=== PATIENT | female | born 1950 | race Caucasian/White ===

== ENCOUNTER 2018-08-27 18:32 | Observation (INO) | payer OTHER ==
[~2018-08-27] VITALS: Ht 160 cm; Wt 81.3 kg
[2018-08-27] MEDS ORDERED: ASPIRIN 81 MG TAB PO STA (18:41)
[2018-08-27] MEDS ORDERED: NITROGLYCERIN 2% 1 GM OINT PKT TD STA (18:41)
[2018-08-27] MEDS ORDERED: NITROGLYCERIN (SL) 0.4 MG TAB SL PRN (19:00)
[2018-08-27] MEDS ORDERED: ONDANSETRON 4 MG TAB PO PRN (20:00)
[2018-08-27] MEDS ORDERED: NACL 0.9% 3 ML SYG IV SCH (20:00)
[2018-08-27] MEDS ORDERED: ONDANSETRON 4 MG INJ IV PRN (20:00)
[2018-08-27] MEDS ORDERED: BISACODYL (EC) 5 MG TAB PO PRN (20:00)
[2018-08-27] MEDS ORDERED: DOCUSATE SODIUM 100 MG CAP PO PRN (20:00)
[2018-08-27] MEDS ORDERED: ACETAMINOPHEN 325 MG TAB PO PRN ×2 (20:00)
--- NOTE | 2018-08-27 20:01 | ERD ---
ER Documentation Chief Complaint Chief Complaint CP/BP used nitro x3 today, "not feeling well" for several days HPI Patient is a 68-year-old female with hypertension, coronary disease, and colon cancer presents with chest pain. She has left-sided midsternal chest pain. She says that she is not feeling well. She took nitro 4 times today. She said the chest pain is pressure-like and comes and goes. She had headache and blurred vision as well. ROS All systems reviewed and are negative except as per history of present illness. PMhx/Soc History of Surgery: Yes (cardiac bypass x2, thyroidectomy, appendectomy, facial sx) Anesthesia Reaction: No Hx Neurological Disorder: No Hx Respiratory Disorders: No Hx Cardiac Disorders: Yes (CHF, [place]) Hx Psychiatric Problems: Yes (DEPRESSION) Hx Alcohol Use: Yes Hx Substance Use: No Hx Tobacco Use: Yes Smoking Status: Current some day smoker FmHx Family History: coronary disease Physical Exam Vitals Vital Signs Date Temp Pulse Resp B/P (MAP) Pulse Ox O2 O2 Flow FiO2 Time Delivery Rate 08/27/18 78 17 107/53 99 Nasal 2.0 19:08 (71) Cannula 08/27/18 97.2 80 16 121/60 96 18:36 (80) Physical Exam Const: No acute distress Head: Atraumatic Eyes: Normal Conjunctiva ENT: Normal External Ears, Nose and Mouth. Neck: Full range of motion. No meningismus. Resp: Clear to auscultation bilaterally Cardio: Regular rate and rhythm, no murmurs Abd: Soft, non tender, non distended. Normal bowel sounds Skin: No petechiae or rashes Back: No midline or flank tenderness Ext: No cyanosis, or edema Neur: Awake and alert Psych: Anxious Result Diagram: 08/27/18 1856 08/27/18 1856 Results 24 hrs Laboratory Tests Test 08/27/18 18:56 White Blood Count 10.2 10^3/ul Red Blood Count 4.17 10^6/ul Hemoglobin 13.5 g/dl Hematocrit 38.7 % Mean Corpuscular Volume 92.8 fl Mean Corpuscular Hemoglobin 32.4 pg Mean Corpuscular Hemoglobin Concent 34.9 g/dl Red Cell Distribution Width 12.2 % Platelet Count 262 10^3/UL Mean Platelet Volume 10.1 fl Immature Granulocytes % 0.700 % Neutrophils % 68.4 % Lymphocytes % 22.2 % Monocytes % 4.9 % Eosinophils % 2.9 % Basophils % 0.9 % Nucleated Red Blood Cells % 0.0 /100WBC Immature Granulocytes # 0.070 10^3/ul Neutrophils # 7.0 10^3/ul Lymphocytes # 2.3 10^3/ul Monocytes # 0.5 10^3/ul Eosinophils # 0.3 10^3/ul Basophils # 0.1 10^3/ul Nucleated Red Blood Cells # 0.0 10^3/ul Sodium Level 138 mmol/L Potassium Level 3.7 mmol/L Chloride Level 103 mmol/L Carbon Dioxide Level 23 mmol/L Anion Gap 12 Blood Urea Nitrogen 18 mg/dl Creatinine 1.25 mg/dl Est Glomerular Filtrat Rate mL/min 42 mL/min Glucose Level 142 mg/dl Calcium Level 9.8 mg/dl Troponin I < 0.012 ng/ml Current Medications Medications Dose Sig/Patti Start Time Status Last (Trade) Ordered Route PRN Stop Time Admin Dose Reason Admin Aspirin 162 mg ONCE STAT 08/27/18 DC 08/27/18 (Aspirin) PO 18:41 19:00 08/27/18 18:42 1 inch ONCE STAT 08/27/18 DC Nitroglycerin TD 18:41 08/27/18 18:42 (Nitroglyceri n 2% Oint) 1 tab Q5M UP TO 3 08/27/18 Nitroglycerin DOSES PRN 19:00 SL .CHEST (Nitroglyceri PAIN n (Sl Tab) 0.4 Mg) Ondansetron 4 mg ER BRIDGE 08/27/18 HCl (Zofran PRN IV 20:00 Inj) NAUSEA/VOMITI 08/28/18 19:59 NG 650 mg ER BRIDGE 08/27/18 Acetaminophen PRN PO 20:00 (Tylenol .MILD PAIN 08/28/18 19:59 Tab) 1-3 OR TEMP Procedures/MDM EKG #1 read by me: Rate/Rhythm: Regular rate and rhythm at a normal rate Intervals: Normal Impression: No evidence of ischemia or arrhythmia EKG #2 read by me: Rate/Rhythm: Regular rate and rhythm at a normal rate Intervals: Normal Impression: No evidence of ischemia or arrhythmia Chest x-ray read by radiology. Smoking Cessation Therapy: Pt. was lectured for greater than 3 minutes on the health risks of continued smoking and the benefits of cessation. Patient is a 68-year-old female with multiple cardiac risk factors who presents with pressure-like chest pain. I am concerned for possible acute coronary syndrome. I doubt pneumonia, pneumothorax, pulmonary embolism, or aortic dissection. The patient was given aspirin and nitroglycerin. She will be admitted to the care of Dr. Devi as I am told by the financial team she has preferred [employer] insurance. Patient will be admitted to a telemetry observation bed. Departure Diagnosis: Primary Impression: Chest pain Chest pain type: unspecified Qualified Codes: R07.9 - Chest pain, unspecified Condition: DAX Leigh MD Aug 27, 2018 20:01
[2018-08-27 20:56] VITALS: PULSE 69
[2018-08-27 21:00] VITALS: BP 130/65; PULSE 70; RESP 19
[2018-08-27] MEDS ORDERED: ERGO500013 PO (21:09)
[2018-08-27] MEDS ORDERED: HYDR-3980 PO (21:09)
[2018-08-27] MEDS ORDERED: LEVO125T7 PO (21:09)
[2018-08-27] MEDS: morphine 2 MG INJ IV PRN (21:20)
[2018-08-27] MEDS ORDERED: ARIP2TAB9 PO (21:25)
[2018-08-27] MEDS ORDERED: EZET10TA32 PO (21:25)
[2018-08-27] MEDS ORDERED: ATEN50TA PO (21:25)
[2018-08-27] MEDS ORDERED: POTA8TAB46 PO (21:25)
[2018-08-27] MEDS ORDERED: LISI10TA2 PO (21:25)
[2018-08-27] MEDS ORDERED: NITR12SP (21:25)
[2018-08-27] MEDS ORDERED: NITR0.4T32 SL (21:25)
[2018-08-27] MEDS ORDERED: SERT-165 PO (21:25)
[2018-08-27] MEDS ORDERED: RANO500T2 PO (21:25)
[2018-08-27] MEDS ORDERED: FURO40TA4 PO (21:25)
[2018-08-27] MEDS ORDERED: CLOP75TA28 PO (21:25)
[2018-08-27] MEDS ORDERED: LAMO200T2 PO (21:25)
[2018-08-27] MEDS ORDERED: ALPR2TAB3 PO (21:25)
[2018-08-27] MEDS ORDERED: RANI150T5 PO (21:25)
[2018-08-27 22:16] VITALS: Ht 160 cm; Wt 81.3 kg
--- NOTE | 2018-08-27 22:22 | HP ---
Date/Time of Note Date/Time of Note DATE: 08/27/18 TIME: 22:22 Assessment/Plan VTE Prophylaxis SCD applied (from Nsg): Yes Pharmacological prophylaxis: NA/contraindicated Pharm contraindication: low risk/ambulating Lines/Catheters IV Catheter Type (from Nrsg): Saline Lock Assessment/Plan Hospital Course This is a 68-year-old female being admitted to the telemetry floor for: #1 chest pain: Rule out ACS versus anginal equivalent: Patient does report that she has been taking multiple nitro tabs recently. Initial cardiac enzyme was negative. Will trend cardiac enzymes. Will check an echocardiogram. EKG does not appear to be ischemic. Will consult cardiology . We will c heck hemoglobin A 1C, lipid panel, TSH #2 history of thyroid cancer: We will check TSH, resume levothyroxine #3 coronary disease: Patient is status post CABG, has a history of multiple MIs. Continue Ranexa, Plavix, ezetembie, atenolol, lisinopril #4 hyperlipidemia: Check lipid panel, cont ezetembie #5 questionable history of colon cancer: Patient apparently had a positive stool occult blood. Check stool occult blood. She does have a GI as an outpatient. She is requesting a whole-body MRI. I do feel that this could be further managed as an outpatient, will defer to the day team in terms of getting further imaging/gi consult. #6 mood disorder: Patient is a very anxious individual, continue home medication #7 DVT GI prophylaxis: SCDs, no GI prophylaxis indicated Further treatment strategy will be implemented as per the clinical course. Result Diagram: 08/27/18185508/27/186 Results 24hrs Laboratory Tests Test 08/27/18 18:56 White Blood Count 10.2 Red Blood Count 4.17 L Hemoglobin 13.5 Hematocrit 38.7 Mean Corpuscular Volume 92.8 Mean Corpuscular Hemoglobin 32.4 Mean Corpuscular Hemoglobin Concent 34.9 Red Cell Distribution Width 12.2 Platelet Count 262 Mean Platelet Volume 10.1 Immature Granulocytes % 0.700 H Neutrophils % 68.4 Lymphocytes % 22.2 Monocytes % 4.9 Eosinophils % 2.9 Basophils % 0.9 Nucleated Red Blood Cells % 0.0 Immature Granulocytes # 0.070 H Neutrophils # 7.0 Lymphocytes # 2.3 Monocytes # 0.5 Eosinophils # 0.3 Basophils # 0.1 Nucleated Red Blood Cells # 0.0 Sodium Level 138 Potassium Level 3.7 Chloride Level 103 Carbon Dioxide Level 23 Anion Gap 12 Blood Urea Nitrogen 18 Creatinine 1.25 H Est Glomerular Filtrat Rate mL/min 42 L Glucose Level 142 Calcium Level 9.8 Troponin I < 0.012 HPI/ROS Admit Date/Time Admit Date/Time Aug 27, 2018 at 19:56 Hx of Present Illness Chief complaint: Chest pain This is a 68-year-old female with a past medical history of hypertension thyroid cancer, coronary artery disease status post CABG, and recent diagnosis of possible colon cancer who presented to the emergency department complaining of chest pain. Patient reported that she has been expressing left-sided midsternal chest pain. She states that has been on and off. She took 4 nitros prior to coming into the emergency department. She reports it is a pressure-like sensation. She also has reported headaches and blurry vision. She does state that she was diagnosed with possible colon cancer recently through blood test that was done via her [facility] care doctor. She is unable to have a colonoscopy performed given her underlying cardiac history according to her. During my examination with her she does repeatedly request a full body MRI scan. 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 Allergies: NKDA Medications: See SCOTTIE HARRIS Const: As per HPI Eyes : No pain discharge or redness or change in visual acuity ENT: No pain, sore throat, congestion, congestion, dysphagia or discharge Respiratory: No shortness of breath, cough, sputum, wheezing, or pleuritic pain Cardiovascular: As per HPI GI : As per HPI Musculoskeletal: No joint pain, back pain, neck pain, restricted range of motion in neck or joints Skin: No rash, bruising or hives Neuro: No headache, dizziness, syncope, seizure, focal weakness Endocrine: No polyuria, polydipsia, temperature intolerance Psych: No hallucination, depression, anxiety or suicidal ideation PMH/Family/Social Past Medical History Thyroid cancer, coronary artery disease, PA x3, chronic kidney disease stage III, hyperlipidemia, colon cancer, mood disorder Medications Current Medications Ondansetron HCl (Zofran Inj) 4 mg ER BRIDGE PRN IV NAUSEA/VOMITING; Start 08/27/18 at 20:00; Stop 08/28/18 at 19:59 IV Flush (NS 3 ml) 3 ml PER PROTOCOL IV ; Start 08/27/18 at 20:00 Ondansetron HCl (Zofran Tab) 4 mg Q6H PRN PO NAUSEA/VOMITING; Start 08/27/18 at 20:00 Aspirin (Aspirin) 81 mg DAILY PO ; Start 08/28/18 at 09:00 Nitroglycerin (Nitroglycerin (Sl Tab) 0.4 Mg) 1 tab Q5M PRN SL .CHEST PAIN; Start 08/27/18 at 20:00 Acetaminophen (Tylenol Tab) 650 mg Q6H PRN PO .PAIN 1-3 OR TEMP; Start 08/27/18 at 20:00 Morphine Sulfate (morphine) 2 mg Q4H PRN IV .PAIN 7-10 Last administered on 08/27/18at 21:20; Admin Dose 2 MG; Start 08/27/18 at 20:00 Docusate Sodium (Colace) 100 mg Q12H PRN PO .CONSTIPATION; Start 08/27/18 at 20:00 Bisacodyl (Dulcolax) 5 mg DAILY PRN PO .CONSTIPATION; Start 08/27/18 at 20:00 Heparin Sodium (Porcine) (Heparin (5000 Units/1ml)) 5,000 unit Q8 SC ; Start 08/27/18 at 22:00 Coded Allergies: No Known Allergy (Unverified , 08/27/18) Past Surgical History CABG, thyroidectomy, appendectomy, tonsillectomy Family History Significant Family History: cancer (Multiple relatives with cancer) Social History Alcohol Use: occasionally Smoking Status: Current some day smoker Exam/Review of Systems Vital Signs Vitals Vital Signs Date Temp Pulse Resp B/P (MAP) Pulse Ox O2 O2 Flow FiO2 Time Delivery Rate 08/27/18 97.9 70 19 130/65 99 Nasal 21:00 (86) Cannula 08/27/18 2.0 20:21 Exam Exam General: Patient is currently lying in bed she does not appear to be in no acute distress, she does appear to be very anxious HEENT: Atraumatic, normocephalic. The pupils are equal, round and reactive. Extraocular motor are intact Neck: Supple with full range of motion. No rigidity or meningismus Chest: Nontender Lungs: Clear to auscultation bilaterally no crackles rales or wheezing Heart: Normal S1-S2, Regular rhythm and rate. No murmur, S3, or S4 Abdomen: Soft , nontender, nondistended , bowel sounds are present. No guarding no rebound tenderness , No masses or organomegaly. No costovertebral temporal angle mass Extremities: Normal to inspection, no edema no cyanosis Neurologic: Normal mental status, speech normal, cranial nerves II through XII are intact, motor and sensory are intact, no focal weakness Psych: Patient is very anxious she, does go on tangents and repeats herself Additional Comments EKG Rate/Rhythm: Regular rate and rhythm at a normal rate Intervals: Normal Impression: No evidence of ischemia or arrhythmia PROCEDURE: XR Chest. CLINICAL INDICATION: Pain TECHNIQUE: Frontal chest x-ray was obtained. COMPARISON: None. FINDINGS: The heart is not enlarged. The patient is post CABG. Mediastinum is not widened. No hilar masses seen. Lungs are clear of any infiltrates. There is no effusion or pneumothorax. 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 IMPRESSION: No evidence for active cardiopulmonary disease. .Steve Will MD, MD Date Time Electronically viewed and signed by .Steve Will MD, MD on 08/27/2018 19:53 .A/ CC: DAX EMERY MD [id number] GIGI ELIZABETH Aug 27, 2018 22:22
[2018-08-27] MEDS ORDERED: NON-FORMULARY/PATIENT OWN MED (Alprazolam* (Alprazolam* ER) 2 MG) PO SCH (22:30)
[2018-08-27] MEDS ORDERED: RANOLAZINE (SR) 500 MG TAB PO SCH (22:30)
[2018-08-27] MEDS: NITROGLYCERIN (SL) 0.4 MG TAB SL PRN ×2 (22:30→22:42)
[2018-08-27] MEDS: FUROSEMIDE 40 MG TAB PO SCH (22:50)
[2018-08-27] MEDS: SERTRALINE 100 MG TAB PO SCH (22:50)
[2018-08-27 23:42] VITALS: BP 107/62; PULSE 69; RESP 20
[2018-08-28] VITALS (15 sets, daily range): BP systolic 89–108; BP diastolic 49–67; PULSE 38–74; RESP 20–22
[2018-08-28] MEDS: HEPARIN 5,000 UNIT/1 ML VIAL SC SCH ×4 (00:20→21:13)
[2018-08-28] MEDS: morphine 2 MG INJ IV PRN ×2 (04:51→17:31)
[2018-08-28] MEDS: NITROGLYCERIN (SL) 0.4 MG TAB SL PRN (05:25)
[2018-08-28] MEDS: FUROSEMIDE 40 MG TAB PO SCH ×2 (05:27→17:27)
[2018-08-28] MEDS: ALPRAZOLAM 1 MG TAB PO SCH ×2 (06:27→20:36)
[2018-08-28] MEDS: RANOLAZINE (SR) 500 MG TAB PO SCH ×2 (08:39→20:36)
[2018-08-28] MEDS: ARIPIPRAZOLE 2 MG TAB PO SCH (08:39)
[2018-08-28] MEDS: POTASSIUM CHLORIDE (SR) 8 MEQ CAP PO SCH ×2 (08:39→20:36)
[2018-08-28] MEDS: EZETIMIBE 10 MG TAB PO SCH (08:40)
[2018-08-28] MEDS: LEVOTHYROXINE 125 MCG TAB PO SCH (08:40)
[2018-08-28] MEDS: CLOPIDOGREL 75 MG TAB PO SCH (08:40)
[2018-08-28] MEDS: LISINOPRIL 10 MG TAB PO SCH (08:41)
[2018-08-28] MEDS: ATENOLOL 50 MG TAB PO SCH (08:41)
[2018-08-28] MEDS: SERTRALINE 100 MG TAB PO SCH ×2 (08:41→20:36)
[2018-08-28] MEDS: ASPIRIN 81 MG TAB PO SCH (08:42)
--- NOTE | 2018-08-28 08:51 | CONS ---
Assessment/Plan Assessment/Plan Hospital Course (Demo Recall) Chest pain/chronic angina: Trops negative. Her symptoms seem to be chronic and though she is unable to properly explain why she decided to come in now, there is presumably worsening of her symptoms. She is hesitant about cardiac cath which I agree but if she has worsening of her RCA/Cx disease, it may explain her symptoms. She could potentially be a candidate for repeat CABG or just PCI. Will start with cardiac CTA to eval which she is agreeable CAD s/p CABG: MAY-LAD and SVG-diag 1996 both of which are known occluded. 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 as well as intermediate Cx and RCA disease as of cath 2012 Ischemic cardiomyopathy: EF 50-55% with LAD territory WMA as expected Chronic systolic CHF: euvolemic HTN HL COPD tobacco use -cardiac CTA today -increase to Ranexa 1000mg BID -refuses to retry imdur -atenolol 50mg -lisinopril 10mg -lasix 40mg PO BID -statin allergy, on Repatha as outpt -zetia Consultation Date/Type/Reason Admit Date/Time Aug 27, 2018 at 19:56 Date of Consultation: Aug 28, 2018 Type of Consult Cardiology Reason for Consultation Chest pain Requesting Provider: GIGI ELIZABETH Date/Time of Note DATE: 08/28/18 TIME: 08:51 Hx of Present Illness 68 yo F known to my colleague from clinic with a h/o CAD s/p CABG (MAY-LAD and SVG-diag 1996 both of which are known occluded. 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 She was given Xanax this am and is somnolent and falls asleep during the interview but is able to tell me that she has been taking her NTG spray 4-5 times daily for angina. This has not really changed in frequency and she is not able to clearly explain to me why she decided to come in now if her symptoms are chronic. She also has exertional dyspnea. No orthopnea, edema. She has been offered imdur in the past but refused and does not think it works. She has been on Ranexa. She notes that she has to get a colonoscopy for colon cancer ?screening and was told by her GI that she cannot because of her CAD history. She does not want a cardiac cath as she states that her LAD has had failed intervention attempts in the past but was explained that she may have progression of her Cx and RCA disease since 2011. She is agreeable to further testing. per hPI Past Medical History per hPI Home Meds Reported Medications Nitroglycerin* (Nitroglycerin* SL) 0.4 Mg Tab.subl, 0.4 MG SL Q5MIN PRN for CHEST PAIN, BOTTLE 08/27/18 Nitroglycerin* (Nitroglycerin* [place]) 400 Mcg/[place], 1 SPRAY SPRAY 1 SPRAY (0.4 MG) UNDER THE TONGUE DAILY 5-10 MINUTES BEFORE STRENOUS ACTIVITY 08/27/18 Aripiprazole (Aripiprazole) 2 Mg Tablet, 2 MG PO DAILY TAKE 1 TABLET BY MOUTH DAILY 08/27/18 Potassium Chloride (K-Tab ER) 8 Meq Tablet.er, 8 MEQ PO BID TAKE 1 TABLET BY MOUTH TWICE A DAY 08/27/18 Clopidogrel Bisulfate (Clopidogrel) 75 Mg Tablet, 75 MG PO DAILY for 90 Days, #90 TAKE 1 TABLET BY MOUTH EVERY DAY; 08/27/18 Atenolol* (Atenolol*) 50 Mg Tablet, 50 MG PO DAILY TAKE ONE TABLET BY MOUTH DAILY 08/27/18 Furosemide* (Furosemide*) 40 Mg Tablet, 40 MG PO BID TAKE 1 TABLET BY MOUTH TWICE A DAY 08/27/18 Ranolazine* (Ranexa*) 500 Mg Tab.sr.12h, 500 MG PO Q12 TAKE 1 TABLET BY MOUTH TWICE A DAY 08/27/18 Sertraline Hcl* (Sertraline Hcl*) 100 Mg Tablet, 100 MG PO BID for 30 Days, #60 08/27/18 Ranitidine Hcl* (Ranitidine Hcl*) 150 Mg Tablet, 150 MG PO DAILY for 90 Days 08/27/18 Lisinopril* (Lisinopril*) 10 Mg Tablet, 10 MG PO DAILY for 90 Days 08/27/18 Lamotrigine* (Lamotrigine*) 200 Mg Tablet, 100 MG PO QPM for 90 Days TAKE ONE HALF TAB BY MOUTH DAILY IN THE EVENING 08/27/18 Ezetimibe (Ezetimibe) 10 Mg Tablet, 10 MG PO DAILY for 90 Days, #90 08/27/18 Alprazolam* (Alprazolam* ER) 2 Mg Tab.sr.24h, 2 MG PO BID 08/27/18 Hydrocodone/Acetaminophen ([place] 10-325 Tablet) 1 Each Tablet, 1 EACH PO Q6H PRN for PAIN LEVEL 6-10, TAB 08/27/18 Levothyroxine Sodium* (Levothyroxine Sodium*) 125 Mcg Tablet, 125 MCG PO QAM for 90 Days, #90 08/27/18 Ergocalciferol (Vitamin D2) (VITAMIN D2) 50,000 Unit Capsule, 1 CAP PO Q7D for QMONDAY 08/27/18 Medications Current Medications Ondansetron HCl (Zofran Inj) 4 mg ER BRIDGE PRN IV NAUSEA/VOMITING; Start 08/10 12/28 at 20:00; Stop 08/28/18 at 19:59 IV Flush (NS 3 ml) 3 ml PER PROTOCOL IV ; Start 08/27/18 at 20:00 Ondansetron HCl (Zofran Tab) 4 mg Q6H PRN PO NAUSEA/VOMITING; Start 08/27/18 at 20:00 Aspirin (Aspirin) 81 mg DAILY PO ; Start 08/28/18 at 09:00 Nitroglycerin (Nitroglycerin (Sl Tab) 0.4 Mg) 1 tab Q5M PRN SL .CHEST PAIN Last administered on 08/28/18at 05:25; Admin Dose 1 TAB; Start 08/27/18 at 20:00 Acetaminophen (Tylenol Tab) 650 mg Q6H PRN PO .PAIN 1-3 OR TEMP; Start 08/27/18 at 20:00 Morphine Sulfate (morphine) 2 mg Q4H PRN IV .PAIN 7-10 Last administered on 08/28/18at 04:51; Admin Dose 2 MG; Start 08/27/18 at 20:00 Docusate Sodium (Colace) 100 mg Q12H PRN PO .CONSTIPATION; Start 08/27/18 at 20:00 Bisacodyl (Dulcolax) 5 mg DAILY PRN PO .CONSTIPATION; Start 08/27/18 at 20:00 Heparin Sodium (Porcine) (Heparin (5000 Units/1ml)) 5,000 unit Q8 SC Last administered on 08/28/18at 05:42; Admin Dose 5,000 UNIT; Start 08/27/18 at 22:00 Aripiprazole (Abilify) 2 mg DAILY PO ; Start 08/28/18 at 09:00 Atenolol (Tenormin) 50 mg DAILY PO ; Start 08/28/18 at 09:00 Clopidogrel Bisulfate (plaVIX) 75 mg DAILY PO ; Start 08/28/18 at 09:00 EZETIMIBE (Zetia) 10 mg DAILY PO ; Start 08/28/18 at 09:00 Furosemide (Lasix) 40 mg BID DIURETICS PO Last administered on 08/28/18at 05:27; Admin Dose 40 MG; Start 08/27/18 at 22:30 Lamotrigine (Lamictal) 100 mg QPM PO ; Start 08/28/18 at 21:00 Levothyroxine Sodium (Synthroid) 125 mcg QAM PO ; Start 08/28/18 at 09:00 Lisinopril (Zestril) 10 mg DAILY PO ; Start 08/28/18 at 09:00 Potassium Chloride (Micro-K) 8 meq BID PO ; Start 08/28/18 at 09:00 Ranitidine HCl (Zantac) 150 mg DAILY PO ; Start 08/28/18 at 09:00 Ranolazine (Ranexa) 500 mg Q12 PO Last administered on 08/27/18at 22:50; Admin Dose 500 MG; Start 08/27/18 at 22:30 Sertraline HCl (Zoloft) 100 mg BID PO Last administered on 08/27/18at 22:50; Admin Dose 100 MG; Start 08/27/18 at 22:30 Alprazolam (Xanax) 2 mg BID PO Last administered on 08/28/18at 06:27; Admin Dose 2 MG; Start 08/28/18 at 06:31 Allergies: Coded Allergies: No Known Allergy (Unverified , 08/27/18) Social History Smoking Status: Current some day smoker Exam/Review of Systems Vital Signs Vitals Vital Signs Date Temp Pulse Resp B/P (MAP) Pulse Ox O2 O2 Flow FiO2 Time Delivery Rate 08/28/18 97.8 58 22 89/51 (64) 96 Nasal 2.0 07:53 Cannula Intake and Output 08/27/18 08/27/18 08/28/18 1515:00 23:00 07:00 IntakeIntake Total 800 ml BalanceBalance 800 ml Exam Constitutional: oriented; No alert (somnolent but arousable ) Psych: no complaints, nl mood/affect Head: normocephalic, atraumatic Neck: No jvd Respiratory: clear to auscultation, diminished breath sounds Cardiovascular: regular rate and rhythm; No edema, No systolic murmur Gastrointestinal: soft, non-tender; No distended Neurological: nl mental status, nl speech Labs Result Diagram: 08/28/1815 08/28/1815 Results 24hrs Laboratory Tests Test 08/27/18 18:56 08/28/18 00:53 08/28/18 06:14 08/28/18 06:15 White Blood Count 10.2 7.7 # Red Blood Count 4.17 L 3.69 L Hemoglobin 13.5 11.9 L Hematocrit 38.7 35.2 L Mean Corpuscular 92.8 95.4 Volume Mean Corpuscular 32.4 32.2 Hemoglobin Mean Corpuscular 34.9 33.8 Hemoglobin Concent Red Cell 12.2 12.4 Distribution Width Platelet Count 262 213 Mean Platelet Volume 10.1 10.6 H Immature 0.700 H 0.700 H Granulocytes % Neutrophils % 68.4 63.8 Lymphocytes % 22.2 23.0 Monocytes % 4.9 6.8 Eosinophils % 2.9 4.8 Basophils % 0.9 0.9 Nucleated Red Blood 0.0 0.0 Cells % Immature 0.070 H 0.050 H Granulocytes # Neutrophils # 7.0 4.9 Lymphocytes # 2.3 1.8 Monocytes # 0.5 0.5 Eosinophils # 0.3 0.4 Basophils # 0.1 0.1 Nucleated Red Blood 0.0 0.0 Cells # Sodium Level 138 140 Potassium Level 3.7 3.6 Chloride Level 103 101 Carbon Dioxide Level 23 23 Anion Gap 12 16 H Blood Urea Nitrogen 18 19 Creatinine 1.25 H 1.15 H Est Glomerular 42 L 47 L Filtrat Rate mL/min Glucose Level 142 179 Calcium Level 9.8 8.8 Troponin I < 0.012 < 0.012 0.013 Creatine Kinase 71 62 Creatine Kinase 1.1 1.5 Index Creatinine Kinase MB 0.80 0.95 (Mass) Hemoglobin A1c 5.5 Magnesium Level 1.8 Total Bilirubin 0.6 Direct Bilirubin 0.00 Indirect Bilirubin 0.6 Aspartate Amino 18 Transf (AST/SGOT) Alanine 19 Aminotransferase (AL T/SGPT) Alkaline Phosphatase 61 Total Protein 6.5 Albumin 4.1 Globulin 2.40 Albumin/Globulin 1.70 Ratio Triglycerides Level 615 H Cholesterol Level 287 H LDL Cholesterol, 126 Calculated HDL Cholesterol 38 Cholesterol/HDL 7.5 Ratio Thyroid Stimulating 4.630 Hormone (TSH) Medications Medications Current Medications Ondansetron HCl (Zofran Inj) 4 mg ER BRIDGE PRN IV NAUSEA/VOMITING; Start 08/27/18 at 20:00; Stop 08/28/18 at 19:59 IV Flush (NS 3 ml) 3 ml PER PROTOCOL IV ; Start 08/27/18 at 20:00 Ondansetron HCl (Zofran Tab) 4 mg Q6H PRN PO NAUSEA/VOMITING; Start 08/27/18 at 20:00 Aspirin (Aspirin) 81 mg DAILY PO ; Start 08/28/18 at 09:00 Nitroglycerin (Nitroglycerin (Sl Tab) 0.4 Mg) 1 tab Q5M PRN SL .CHEST PAIN Last administered on 08/28/18at 05:25; Admin Dose 1 TAB; Start 08/27/18 at 20:00 Acetaminophen (Tylenol Tab) 650 mg Q6H PRN PO .PAIN 1-3 OR TEMP; Start 08/27/18 at 20:00 Morphine Sulfate (morphine) 2 mg Q4H PRN IV .PAIN 7-10 Last administered on 08/28/18at 04:51; Admin Dose 2 MG; Start 08/27/18 at 20:00 Docusate Sodium (Colace) 100 mg Q12H PRN PO .CONSTIPATION; Start 08/27/18 at 20:00 Bisacodyl (Dulcolax) 5 mg DAILY PRN PO .CONSTIPATION; Start 08/27/18 at 20:00 Heparin Sodium (Porcine) (Heparin (5000 Units/1ml)) 5,000 unit Q8 SC Last administered on 08/28/18at 05:42; Admin Dose 5,000 UNIT; Start 08/27/18 at 22:00 Aripiprazole (Abilify) 2 mg DAILY PO ; Start 08/28/18 at 09:00 Atenolol (Tenormin) 50 mg DAILY PO ; Start 08/28/18 at 09:00 Clopidogrel Bisulfate (plaVIX) 75 mg DAILY PO ; Start 08/28/18 at 09:00 EZETIMIBE (Zetia) 10 mg DAILY PO ; Start 08/28/18 at 09:00 Furosemide (Lasix) 40 mg BID DIURETICS PO Last administered on 08/28/18at 05:27; Admin Dose 40 MG; Start 08/27/18 at 22:30 Lamotrigine (Lamictal) 100 mg QPM PO ; Start 08/28/18 at 21:00 Levothyroxine Sodium (Synthroid) 125 mcg QAM PO ; Start 08/28/18 at 09:00 Lisinopril (Zestril) 10 mg DAILY PO ; Start 08/28/18 at 09:00 Potassium Chloride (Micro-K) 8 meq BID PO ; Start 08/28/18 at 09:00 Ranitidine HCl (Zantac) 150 mg DAILY PO ; Start 08/28/18 at 09:00 Ranolazine (Ranexa) 500 mg Q12 PO Last administered on 08/27/18at 22:50; Admin Dose 500 MG; Start 08/27/18 at 22:30 Sertraline HCl (Zoloft) 100 mg BID PO Last administered on 08/27/18at 22:50; Admin Dose 100 MG; Start 08/27/18 at 22:30 Alprazolam (Xanax) 2 mg BID PO Last administered on 08/28/18at 06:27; Admin Dose 2 MG; Start 08/28/18 at 06:31 AKILAH BLANCO Aug 28, 2018 08:51
[2018-08-28] MEDS ORDERED: RANITIDINE 150 MG TAB PO SCH (09:00)
[2018-08-28] MEDS ORDERED: ALPRAZOLAM 1 MG TAB PO SCH (09:00)
[2018-08-28] MEDS ORDERED: SOD CHLORIDE 0.9% 100 ML ONE (11:10)
[2018-08-28] MEDS ORDERED: IOHEXOL 100 ML ONE (11:10)
--- NOTE | 2018-08-28 11:18 | RADRPT ---
Echocardiogram Report Patient Name: BRISEYDA SALDANAPatient ID: [id number] : 1950 (68y 3m)Study Date: 08/28/2018 7:20:20 AM Gender: FAccession #: [id number] Tech: Antonette Irwin [place] Location: 7 Ref.Physician: GIGI ELIZABETH Height(Cm): BSA: Weight(Kg): Quality: AdequateAccount #: Procedures: Echocardiographic Report: Transthoracic echocardiogram with complete 2D, M-Mode, and doppler examination. Indications: Chest Pain. Measurements: 2D/M Mode Doppler Measurement Value Normal Range Measurement Value Normal Range LVIDd 2D 4.4 [ 3.8 - 5.2 ] cm AV Peak Leeroy 1.5 [ 100.0 - 170.0 ] cm/sec LVIDs 2D 2.8 [ 2.2 - 3.5 ] cm AV Peak PG 9.0 [ 2.0 - 9.0 ] mmHg LVPWd 2D 1.1 [ 0.6 - 0.9 ] cm LVOT Peak Leeroy 0.9 [ 70.0 - 110.0 ] cm/sec IVSd 2D 1.1 [ 0.6 - 0.9 ] cm LVOT Peak PG 3.0 [ 2.0 - 6.0 ] mmHg IVS/LVPW 2D 1.0 ratio MV E Peak Leeroy 0.8 [ 60.0 - 130.0 ] cm/sec AoR Diam 2D 2.7 [ 2.3 - 3.1 ] cm MV A Peak Leeroy 0.8 [ 100.0 - 120.0 ] cm/sec LA/Ao 2D 1 ratio MV E/A 0.9 [ 0.8 - 1.5 ] ratio LA Dimen 2D 3.8 [ 2.7 - 3.8 ] cm MV Decel Time 211 [ 104 - 258 ] msec Lat E` Leeroy 0.1 [ 10.0 - 15.0 ] cm/sec MV E/A 0.9 [ 0.8 - 1.5 ] ratio TR Peak Leeroy 2.0 [ 100.0 - 280.0 ] cm/sec TR Peak PG 17.0 mmHg RVSP 20.0 [ 10.0 - 36.0 ] mmHg RA Pressure 3.0 mmHg Findings: Left Ventricle: Lower limits of normal systolic function. Normal left ventricular cavity size. Mild concentric left ventricular hypertrophy. Ejection fraction is visually estimated at 50-55 %. Tissue Doppler/Mitral Doppler indices are consistent with impaired relaxation (Stage I diastolic dysfunction). Akinesis of the mid to distal septum and apex. Hypokinesis of the mid to distal anterior wall. These segments of the LV are hypokinetic apical anterior segment and apical septum. Right Ventricle: Normal right ventricular size. Normal right ventricular systolic function. Left Atrium: There is mild enlargement of left atrium. Right Atrium: The right atrium is normal in size. Mitral Valve: Normal appearance of the mitral valve. Trace mitral regurgitation. Aortic Valve: Normal appearance of the aortic valve. No significant aortic stenosis or insufficiency. Tricuspid Valve: Normal appearance and function of the tricuspid valve with trace physiologic regurgitation. Normal right ventricular systolic pressure. Estimated peak PA systolic pressure 20 mmHg. There is trace tricuspid regurgitation. Pulmonic Valve: There is mild pulmonic regurgitation. Pericardium: Normal pericardium with no significant pericardial effusion. Aorta: Normal aortic root. IVC: Normal size and normal respiratory collapse consistent with normal right atrial pressure. Conclusions: Lower limits of normal systolic function. Normal left ventricular cavity size. Mild concentric left ventricular hypertrophy. Ejection fraction is visually estimated at 50-55 %. Tissue Doppler/Mitral Doppler indices are consistent with impaired relaxation (Stage I diastolic dysfunction). Akinesis of the mid to distal septum and apex. Hypokinesis of the mid to distal anterior wall. These segments of the LV are hypokinetic apical anterior segment and apical septum. No significant valvular stenosis or regurgitation seen. Estimated peak PA systolic pressure 20 mmHg. Normal size and normal respiratory collapse consistent with normal right atrial pressure. Electronically Signed By: Nima Gongora 2018-08-28 11:17:51 PDT
[2018-08-28] MEDS ORDERED: NITROGLYCERIN AEROSOL (4.9 GM) ONE (11:28)
--- NOTE | 2018-08-28 12:13 | PN ---
Date/Time of Note Date/Time of Note DATE: 08/28/18 TIME: 11:53 Assessment/Plan VTE Prophylaxis Risk score (from Ns)>0 risk: 5 SCD applied (from Ns): Yes Pharmacological prophylaxis: heparin Lines/Catheters [facility] [place] Urinary Cath still in place: No Assessment/Plan Assessment/Plan 1. Lower chest and upper abdominal pain, chronic, follow up with coronary CT angiography 2. CAD s/p CABG with MAY-LAD and SVG-diag in 1996 both of which are known occluded. 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 Diastolic CHF due to ischemic cardiomyopathy EF 50-55%, on lasix 4. HTN, controlled 5. Dyslipidemia, on statin 6. COPD, stable 7. H/o thyroid cancer, s/p total thyroidectomy, on synthroid 8. Tobacco use, advise to quit 9. Depression, stable 10. Acute kidney injury, improving 11. DVT prophylaxis: heparin Result Diagram: 08/28/1815 08/28/1815 Results 24hrs Laboratory Tests Test 08/27/18 18:56 08/28/18 00:53 08/28/18 06:14 08/28/18 06:15 White Blood Count 10.2 7.7 # Red Blood Count 4.17 L 3.69 L Hemoglobin 13.5 11.9 L Hematocrit 38.7 35.2 L Mean Corpuscular 92.8 95.4 Volume Mean Corpuscular 32.4 32.2 Hemoglobin Mean Corpuscular 34.9 33.8 Hemoglobin Concent Red Cell 12.2 12.4 Distribution Width Platelet Count 262 213 Mean Platelet Volume 10.1 10.6 H Immature 0.700 H 0.700 H Granulocytes % Neutrophils % 68.4 63.8 Lymphocytes % 22.2 23.0 Monocytes % 4.9 6.8 Eosinophils % 2.9 4.8 Basophils % 0.9 0.9 Nucleated Red Blood 0.0 0.0 Cells % Immature 0.070 H 0.050 H Granulocytes # Neutrophils # 7.0 4.9 Lymphocytes # 2.3 1.8 Monocytes # 0.5 0.5 Eosinophils # 0.3 0.4 Basophils # 0.1 0.1 Nucleated Red Blood 0.0 0.0 Cells # Sodium Level 138 140 Potassium Level 3.7 3.6 Chloride Level 103 101 Carbon Dioxide Level 23 23 Anion Gap 12 16 H Blood Urea Nitrogen 18 19 Creatinine 1.25 H 1.15 H Est Glomerular 42 L 47 L Filtrat Rate mL/min Glucose Level 142 179 Calcium Level 9.8 8.8 Troponin I < 0.012 < 0.012 0.013 Creatine Kinase 71 62 Creatine Kinase 1.1 1.5 Index Creatinine Kinase MB 0.80 0.95 (Mass) Hemoglobin A1c 5.5 Magnesium Level 1.8 Total Bilirubin 0.6 Direct Bilirubin 0.00 Indirect Bilirubin 0.6 Aspartate Amino 18 Transf (AST/SGOT) Alanine 19 Aminotransferase (AL T/SGPT) Alkaline Phosphatase 61 Total Protein 6.5 Albumin 4.1 Globulin 2.40 Albumin/Globulin 1.70 Ratio Triglycerides Level 615 H Cholesterol Level 287 H LDL Cholesterol, 126 Calculated HDL Cholesterol 38 Cholesterol/HDL 7.5 Ratio Thyroid Stimulating 4.630 Hormone (TSH) Subjective 24 Hr Interval Summary Free Text/Dictation epigastric discomfort Exam/Review of Systems Exam Vitals Vital Signs Date Temp Pulse Resp B/P (MAP) Pulse Ox O2 O2 Flow FiO2 Time Delivery Rate 08/28/18 67 107/67 09:00 (80) 08/28/18 97.8 22 96 Nasal 2.0 07:53 Cannula Intake and Output 08/27/18 08/27/18 08/28/18 1515:00 23:00 07:00 IntakeIntake Total 800 ml BalanceBalance 800 ml Constitutional: alert, oriented, well developed, obese Head: normocephalic, atraumatic Eyes: nl conjunctiva, EOMI, nl lids, PERRL ENMT: nl external ears & nose, nl lips & teeth, nl nasal mucosa & septum Neck: supple, non-tender Respiratory: clear to auscultation, normal air movement; No congested cough, No crackles/rales, No diminished breath sounds, No intercostal retraction, No labored breathing, No respirations, No tactile fremitus, No wheezing, No other Cardiovascular: regular rate and rhythm, nl pulses; No bruits, No diastolic murmur, No edema, No gallop, No irregular rhythm, No jugular venous distention (JVD), No murmurs/extra sounds, No rub, No systolic murmur, No S3, No S4, No other Gastrointestinal: soft, nl liver, spleen, non-tender; No ascites, No bowel sounds, No distended, No firm, No hepatomegaly, No mass, No rebound or guarding, No splenomegaly, No surgical scars, No tender, No other Musculoskeletal: nl extremities to inspection Extremities: normal pulses; No calf tenderness, No cyanosis, No clubbing, No edema, No pitting pedal edema, No palpable cord, No tenderness, No other Neurological: DIRECTOR LEARNING AND DEVELOPMENT II-XII intact, nl mental status, nl speech, nl strength Results Results 24hrs Laboratory Tests Test 08/27/18 18:56 08/28/18 00:53 08/28/18 06:14 08/28/18 06:15 White Blood Count 10.2 7.7 # Red Blood Count 4.17 L 3.69 L Hemoglobin 13.5 11.9 L Hematocrit 38.7 35.2 L Mean Corpuscular 92.8 95.4 Volume Mean Corpuscular 32.4 32.2 Hemoglobin Mean Corpuscular 34.9 33.8 Hemoglobin Concent Red Cell 12.2 12.4 Distribution Width Platelet Count 262 213 Mean Platelet Volume 10.1 10.6 H Immature 0.700 H 0.700 H Granulocytes % Neutrophils % 68.4 63.8 Lymphocytes % 22.2 23.0 Monocytes % 4.9 6.8 Eosinophils % 2.9 4.8 Basophils % 0.9 0.9 Nucleated Red Blood 0.0 0.0 Cells % Immature 0.070 H 0.050 H Granulocytes # Neutrophils # 7.0 4.9 Lymphocytes # 2.3 1.8 Monocytes # 0.5 0.5 Eosinophils # 0.3 0.4 Basophils # 0.1 0.1 Nucleated Red Blood 0.0 0.0 Cells # Sodium Level 138 140 Potassium Level 3.7 3.6 Chloride Level 103 101 Carbon Dioxide Level 23 23 Anion Gap 12 16 H Blood Urea Nitrogen 18 19 Creatinine 1.25 H 1.15 H Est Glomerular 42 L 47 L Filtrat Rate mL/min Glucose Level 142 179 Calcium Level 9.8 8.8 Troponin I < 0.012 < 0.012 0.013 Creatine Kinase 71 62 Creatine Kinase 1.1 1.5 Index Creatinine Kinase MB 0.80 0.95 (Mass) Hemoglobin A1c 5.5 Magnesium Level 1.8 Total Bilirubin 0.6 Direct Bilirubin 0.00 Indirect Bilirubin 0.6 Aspartate Amino 18 Transf (AST/SGOT) Alanine 19 Aminotransferase (AL T/SGPT) Alkaline Phosphatase 61 Total Protein 6.5 Albumin 4.1 Globulin 2.40 Albumin/Globulin 1.70 Ratio Triglycerides Level 615 H Cholesterol Level 287 H LDL Cholesterol, 126 Calculated HDL Cholesterol 38 Cholesterol/HDL 7.5 Ratio Thyroid Stimulating 4.630 Hormone (TSH) Medications Medication Current Medications Ondansetron HCl (Zofran Inj) 4 mg ER BRIDGE PRN IV NAUSEA/VOMITING; Start 08/27/18 at 20:00; Stop 08/28/18 at 19:59 IV Flush (NS 3 ml) 3 ml PER PROTOCOL IV ; Start 08/27/18 at 20:00 Ondansetron HCl (Zofran Tab) 4 mg Q6H PRN PO NAUSEA/VOMITING; Start 08/27/18 at 20:00 Aspirin (Aspirin) 81 mg DAILY PO Last administered on 08/28/18 08:42; Admin Dose 81 MG; Start 08/28/18 at 09:00 Nitroglycerin (Nitroglycerin (Sl Tab) 0.4 Mg) 1 tab Q5M PRN SL .CHEST PAIN Last administered on 08/28/18 05:25; Admin Dose 1 TAB; Start 08/27/18 at 20:00 Acetaminophen (Tylenol Tab) 650 mg Q6H PRN PO .PAIN 1-3 OR TEMP; Start 08/27/18 at 20:00 Morphine Sulfate (morphine) 2 mg Q4H PRN IV .PAIN 7-10 Last administered on 08/28/18 04:51; Admin Dose 2 MG; Start 08/27/18 at 20:00 Docusate Sodium (Colace) 100 mg Q12H PRN PO .CONSTIPATION; Start 08/27/18 at 20:00 Bisacodyl (Dulcolax) 5 mg DAILY PRN PO .CONSTIPATION; Start 08/27/18 at 20:00 Heparin Sodium (Porcine) (Heparin (5000 Units/1ml)) 5,000 unit Q8 SC Last a dministered on 08/28/18 05:42; Admin Dose 5,000 UNIT; Start 08/27/18 at 22:00 Aripiprazole (Abilify) 2 mg DAILY PO Last administered on 08/28/18 08:39; Admin Dose 2 MG; Start 08/28/18 at 09:00 Atenolol (Tenormin) 50 mg DAILY PO Last administered on 08/28/18 08:41; Admin Dose 50 MG; Start 08/28/18 at 09:00 Clopidogrel Bisulfate (plaVIX) 75 mg DAILY PO Last administered on 08/28/18 08:40; Admin Dose 75 MG; Start 08/28/18 at 09:00 EZETIMIBE (Zetia) 10 mg DAILY PO Last administered on 08/28/18 08:40; Admin Dose 10 MG; Start 08/28/18 at 09:00 Furosemide (Lasix) 40 mg BID DIURETICS PO Last administered on 08/28/18 05:27; Admin Dose 40 MG; Start 08/27/18 at 22:30 Lamotrigine (Lamictal) 100 mg QPM PO ; Start 08/28/18 at 21:00 Levothyroxine Sodium (Synthroid) 125 mcg QAM PO Last administered on 08/28/18 08:40; Admin Dose 125 MCG; Start 08/28/18 at 09:00 Lisinopril (Zestril) 10 mg DAILY PO Last administered on 08/28/18 08:41; Admin Dose 10 MG; Start 08/28/18 at 09:00 Potassium Chloride (Micro-K) 8 meq BID PO Last administered on 08/28/18 08:39; Admin Dose 8 MEQ; Start 08/28/18 at 09:00 Ranitidine HCl (Zantac) 150 mg DAILY PO Last administered on 08/28/18 08:40; Admin Dose 150 MG; Start 08/28/18 at 09:00 Sertraline HCl (Zoloft) 100 mg BID PO Last administered on 08/28/18 08:41; Admin Dose 100 MG; Start 08/27/18 at 22:30 Alprazolam (Xanax) 2 mg BID PO Last administered on 08/28/18 06:27; Admin Dose 2 MG; Start 08/28/18 at 06:31 Ranolazine (Ranexa) 1,000 mg Q12 PO Last administered on 08/28/18 08:39; Admin Dose 1,000 MG; Start 08/28/18 at 09:00 ISABEL ESCOBAR MD Aug 28, 2018 12:06
--- NOTE | 2018-08-28 13:38 | CONS ---
DATE OF ADMISSION: 08/27/2018 DATE OF CONSULTATION: TYPE OF CONSULTATION: Nephrology. REASON FOR CONSULTATION: Chronic kidney disease. PHYSICIAN REQUESTING CONSULT: Fausto Elizabeth MD HISTORY OF PRESENT ILLNESS: This is a 68-year-old female with a past medical history of coronary art joy disease, history of CABG, history of ischemic cardiomyopathy with ejection fraction of 55%, histo ry of chronic heart failure, history of hypertension, COPD, dyslipidemia, history of coronary artery disease, who presents to [facility] with complaints of chest pain. The patient sta james she has had chest pain on and off for the past several days. She took 4 nitroglycerin prior to c oming to the emergency room. She reports the pain is pressure-like. She also reports headache and b lurry vision. The patient in the emergency room was treated with nitroglycerin, Plavix and was admit connor to telemetry for evaluation. In terms of patient's renal history, the patient states she has underlying CKD and has seen a nephrol ogist in outpatient setting. She denies any hemoptysis, hematemesis, hematochezia. PAST MEDICAL HISTORY: As stated above, history of coronary artery disease, history of cardiomyopathy , history of thyroid cancer, history of dyslipidemia, questionable history of colon cancer, history o f behavior disorder, history of CKD. PAST SURGICAL HISTORY: Status post CABG. FAMILY HISTORY: No family history of kidney disease. SOCIAL HISTORY: Does not drink, smoke, do drugs. MEDICATIONS: Have been reviewed. REVIEW OF SYSTEMS: A 14-point review of systems conducted. Pertinent positives stated in HPI, other macias negative. PHYSICAL EXAMINATION: VITAL SIGNS: Blood pressure is 107/67, respirations 22, pulse 58, temperature 97.8. HEENT: Head is normocephalic. NECK: Supple. HEART: Regular rate. LUNGS: Show diminished breath sounds at base. ABDOMEN: Soft, nontender to palpation without rebound or guarding. EXTREMITIES: Negative for clubbing, cyanosis. No edema. DERMATOLOGIC: No rashes. MUSCULOSKELETAL: No joint effusion. NEUROLOGIC: No focal deficits. LABORATORY DATA: Have been reviewed. IMAGING STUDIES: Chest x-ray was reviewed. ASSESSMENT AND PLAN: This is a 68-year-old female who presents with: 1. Nonoliguric acute kidney injury on top of chronic kidney disease with unknown baseline creatinine . Etiology of current acute kidney injury is likely secondary to hemodynamics, questionable TARUN inhi bitor effect. Recommendation at this point is to check a UA with microanalysis. We will check urine electrolytes. We will attempt to ascertain patient's baseline renal function by reviewing old medic al records. We would otherwise continue to monitor patient closely on TARUN inhibitor and diuretic the rapy. We will continue supportive care, renally dose all meds, avoid nephrotoxins. 2. Anemia. Monitor hemoglobin and hematocrit levels noted. 3. Mineral bone disorder. Monitor calcium and phosphorus levels. 4. History of heart failure. The patient appears euvolemic on exam. We would monitor renal functio n closely. Consider de-escalating diuretic therapy if renal function should further decline. 5. Chest pain. The patient has history of coronary artery disease being ruled out for acute coronar y syndrome. Follow up with cardiology. 6. Coronary artery disease, status post CABG. Continue current medical management. 7. Hypertension. Continue blood pressure regimen. 8. Dyslipidemia. Continue statin therapy. 9. History of chronic obstructive pulmonary disease. 10. History of mood disorder. Continue current treatment plan. Thank you, Dr. Elizabeth, for this interesting consult. It will be a pleasure to follow the patient wi th you throughout the hospital course. Dictated By: DARIO WU DO NR/NTS Conf#: [id number] DID#: [id number] CC: FAUSTO ELIZABETH MD;*EndCC*
[2018-08-28] MEDS ORDERED: LAMOTRIGINE 100 MG TAB PO SCH (21:00)
[2018-08-29] VITALS (9 sets, daily range): BP systolic 33–120; BP diastolic 53–59; PULSE 53–88; RESP 18–20
[2018-08-29] MEDS: morphine 2 MG INJ IV PRN ×2 (00:58→06:18)
[2018-08-29] MEDS: FUROSEMIDE 40 MG TAB PO SCH ×2 (06:14→18:07)
[2018-08-29] MEDS: HEPARIN 5,000 UNIT/1 ML VIAL SC SCH ×2 (06:39→15:00)
[2018-08-29] MEDS: ATENOLOL 50 MG TAB PO SCH (09:00)
[2018-08-29] MEDS: LISINOPRIL 10 MG TAB PO SCH (09:00)
[2018-08-29] MEDS: RANOLAZINE (SR) 500 MG TAB PO SCH (09:35)
[2018-08-29] MEDS: ALPRAZOLAM 1 MG TAB PO SCH (09:35)
[2018-08-29] MEDS: CLOPIDOGREL 75 MG TAB PO SCH (09:36)
[2018-08-29] MEDS: ASPIRIN 81 MG TAB PO SCH (09:36)
[2018-08-29] MEDS: EZETIMIBE 10 MG TAB PO SCH (09:36)
[2018-08-29] MEDS: POTASSIUM CHLORIDE (SR) 8 MEQ CAP PO SCH (09:36)
[2018-08-29] MEDS: ARIPIPRAZOLE 2 MG TAB PO SCH (09:36)
[2018-08-29] MEDS: SERTRALINE 100 MG TAB PO SCH (09:36)
[2018-08-29] MEDS: LEVOTHYROXINE 125 MCG TAB PO SCH (09:36)
--- NOTE | 2018-08-29 10:55 | CONS ---
Assessment/Plan Assessment/Plan Assessment/Plan (Daily) 1. Nonoliguric acute kidney injury on top of chronic kidney disease with unknown baseline creatinine. LESLY likely due to hemodynamic changes. improving. continue lisinopril. Urine studies pending. 2. Anemia. Monitor hemoglobin and hematocrit levels noted. 3. Mineral bone disorder. Monitor calcium and phosphorus levels. 4. History of heart failure. The patient appears euvolemic on exam. We would monitor renal function closely. Consider de-escalating diuretic therapy if renal function should further decline. 5. Chest pain. The patient has history of coronary artery disease being ruled out for acute coronary syndrome. Follow up with cardiology. 6. Coronary artery disease, status post CABG. Continue current medical management. 7. Hypertension. Continue blood pressure regimen. 8. Dyslipidemia. Continue statin therapy. 9. History of chronic obstructive pulmonary disease. 10. History of mood disorder. Continue current treatment plan. Consultation Date/Type/Reason Admit Date/Time Aug 27, 2018 at 19:56 Initial Consult Date 08/28/18 Requesting Provider: GIGI ELIZABETH Date/Time of Note DATE: 08/29/18 TIME: 10:54 24 HR Interval Summary Free Text/Dictation denies shortness of breath, n/v or urinary issues d/w rn gen nad cv rrr pulm ctab abd soft nd, nt +bs ext: no edema Exam/Review of Systems Exam Vitals Vital Signs Date Temp Pulse Resp B/P (MAP) Pulse Ox O2 O2 Flow FiO2 Time Delivery Rate 08/29/18 59 08:01 08/29/18 98.2 18 102/53 96 07:34 (69) 08/28/18 Nasal 15:51 Cannula 08/28/18 2.0 07:53 Intake and Output 08/28/18 08/28/18 08/29/18 1515:00 23:00 07:00 IntakeIntake Total 930 ml 800 ml BalanceBalance 930 ml 800 ml Results Result Diagram: 08/28/1815 08/28/18614 Medications Medication Current Medications IV Flush (NS 3 ml) 3 ml PER PROTOCOL IV ; Start 08/27/18 at 20:00 Ondansetron HCl (Zofran Tab) 4 mg Q6H PRN PO NAUSEA/VOMITING; Start 08/27/18 at 20:00 Aspirin (Aspirin) 81 mg DAILY PO Last administered on 08/29/18 09:36; Admin Dose 81 MG; Start 08/28/18 at 09:00 Nitroglycerin (Nitroglycerin (Sl Tab) 0.4 Mg) 1 tab Q5M PRN SL .CHEST PAIN Last administered on 08/28/18 05:25; Admin Dose 1 TAB; Start 08/27/18 at 20:00 Acetaminophen (Tylenol Tab) 650 mg Q6H PRN PO .PAIN 1-3 OR TEMP; Start 08/27/18 at 20:00 Morphine Sulfate (morphine) 2 mg Q4H PRN IV .PAIN 7-10 Last administered on 08/29/18 06:18; Admin Dose 2 MG; Start 08/27/18 at 20:00 Docusate Sodium (Colace) 100 mg Q12H PRN PO .CONSTIPATION; Start 08/27/18 at 20:00 Bisacodyl (Dulcolax) 5 mg DAILY PRN PO .CONSTIPATION; Start 08/27/18 at 20:00 Heparin Sodium (Porcine) (Heparin (5000 Units/1ml)) 5,000 unit Q8 SC Last administered on 08/29/18 06:39; Admin Dose 5,000 UNIT; Start 08/27/18 at 22:00 Aripiprazole (Abilify) 2 mg DAILY PO Last administered on 08/29/18 09:36; Admin Dose 2 MG; Start 08/28/18 at 09:00 Atenolol (Tenormin) 50 mg DAILY PO Last administered on 08/28/18 08:41; Admin Dose 50 MG; Start 08/28/18 at 09:00 Clopidogrel Bisulfate (plaVIX) 75 mg DAILY PO Last administered on 08/29/18 09:36; Admin Dose 75 MG; Start 08/28/18 at 09:00 EZETIMIBE (Zetia) 10 mg DAILY PO Last administered on 08/29/18 09:36; Admin Dose 10 MG; Start 08/28/18 at 09:00 Furosemide (Lasix) 40 mg BID DIURETICS PO Last administered on 08/29/18 0 6:14; Admin Dose 40 MG; Start 08/27/18 at 22:30 Lamotrigine (Lamictal) 100 mg QPM PO Last administered on 08/28/18 20:36; Admin Dose 100 MG; Start 08/28/18 at 21:00 Levothyroxine Sodium (Synthroid) 125 mcg QAM PO Last administered on 08/29/18 09:36; Admin Dose 125 MCG; Start 08/28/18 at 09:00 Lisinopril (Zestril) 10 mg DAILY PO Last administered on 08/28/18 08:41; Admin Dose 10 MG; Start 08/28/18 at 09:00 Potassium Chloride (Micro-K) 8 meq BID PO Last administered on 08/29/18 09:36; Admin Dose 8 MEQ; Start 08/28/18 at 09:00 Sertraline HCl (Zoloft) 100 mg BID PO Last administered on 08/29/18 09:36; Admin Dose 100 MG; Start 08/27/18 at 22:30 Alprazolam (Xanax) 2 mg BID PO Last administered on 08/29/18 09:35; Admin Dose 2 MG; Start 08/28/18 at 06:31 Ranolazine (Ranexa) 1,000 mg Q12 PO Last administered on 08/29/18 09:35; Admin Dose 1,000 MG; Start 08/28/18 at 09:00 Pantoprazole (Protonix Tab) 40 mg DAILY@06 PO ; Start 08/29/18 at 14:00 LUNA CENTENO MD Aug 29, 2018 10:55
[2018-08-29] MEDS ORDERED: PANTOPRAZOLE (EC) 40 MG TAB PO SCH (14:00)
[2018-08-29] MEDS ORDERED: RANO500T2 PO (16:50)
--- NOTE | 2018-08-29 18:12 | PDOCDIS ---
Discharge Instructions DIAGNOSIS Discharge Diagnosis Opiate seeking behavior Abdominal pain Coronary artery disease CONDITION [id number] Patient Condition: [id number] Stable HOME CARE INSTRUCTIONS: [id number] Diet Instructions: [id number] Low Fat /Cholesterol FOLLOW UP/APPOINTMENTS Follow-up Plan Continue your medications as prescribed LISA DALY MD Aug 29, 2018 18:12
--- NOTE | 2018-08-29 18:12 | DS ---
Date/Time of Note Date/Time of Note DATE: 08/29/18 TIME: 18:09 Discharge Summary Admission/Discharge Info Admit Date/Time Aug 27, 2018 at 19:56 Discharge Date/Time Discharge Diagnosis Opiate seeking behavior Abdominal pain Coronary artery disease Patient Condition: Stable Hospital Course Patient had CT angiogram showing stable disease and CT A/P without acute pathology. I discussed her case with Avis Gongora and Brett who said the patient can be discharged without further workup or management. I went to discuss these results and discharge with her. She was not interested in this. Instead she showed me two empty pill bottles, one for Xanax and one for [place] and demanded I refill them. I said I was not comfortable doing that. She became upset, saying that i "have to." Claims she has been on them for 7 years and she is "not an addict". I agreed to provide a few days of pills to avoid withdrawals until she sees her doctor in clinic next week. Home Meds Active Scripts Ranolazine* (Ranexa*) 500 Mg Tab.sr.12h, 1000 MG PO Q12 for 90 Days, #90 TAB TAKE 1 TABLET BY MOUTH TWICE A DAY Prov:LISA DALY MD 08/29/18 Reported Medications Nitroglycerin* (Nitroglycerin* SL) 0.4 Mg Tab.subl, 0.4 MG SL Q5MIN PRN for CHEST PAIN, BOTTLE 08/27/18 Nitroglycerin* (Nitroglycerin* Likely) 400 Mcg/Likely Likely, 1 SPRAY SPRAY 1 SPRAY (0.4 MG) UNDER THE TONGUE DAILY 5-10 MINUTES BEFORE STRENOUS ACTIVITY 08/27/18 Aripiprazole (Aripiprazole) 2 Mg Tablet, 2 MG PO DAILY TAKE 1 TABLET BY MOUTH DAILY 08/27/18 Potassium Chloride (K-Tab ER) 8 Meq Tablet.er, 8 MEQ PO BID TAKE 1 TABLET BY MOUTH TWICE A DAY 08/27/18 Clopidogrel Bisulfate (Clopidogrel) 75 Mg Tablet, 75 MG PO DAILY for 90 Days, #90 TAKE 1 TABLET BY MOUTH EVERY DAY; 08/27/18 Atenolol* (Atenolol*) 50 Mg Tablet, 50 MG PO DAILY TAKE ONE TABLET BY MOUTH DAILY 08/27/18 Furosemide* (Furosemide*) 40 Mg Tablet, 40 MG PO BID TAKE 1 TABLET BY MOUTH TWICE A DAY 08/27/18 Sertraline Hcl* (Sertraline Hcl*) 100 Mg Tablet, 100 MG PO BID for 30 Days, #60 08/27/18 Ranitidine Hcl* (Ranitidine Hcl*) 150 Mg Tablet, 150 MG PO DAILY for 90 Days 08/27/18 Lisinopril* (Lisinopril*) 10 Mg Tablet, 10 MG PO DAILY for 90 Days 08/27/18 Lamotrigine* (Lamotrigine*) 200 Mg Tablet, 100 MG PO QPM for 90 Days TAKE ONE HALF TAB BY MOUTH DAILY IN THE EVENING 08/27/18 Ezetimibe (Ezetimibe) 10 Mg Tablet, 10 MG PO DAILY for 90 Days, #90 08/27/18 Alprazolam* (Alprazolam* ER) 2 Mg Tab.sr.24h, 2 MG PO BID 08/27/18 Hydrocodone/Acetaminophen ([place] 10-325 Tablet) 1 Each Tablet, 1 EACH PO Q6H PRN for PAIN LEVEL 6-10, TAB 08/27/18 Levothyroxine Sodium* (Levothyroxine Sodium*) 125 Mcg Tablet, 125 MCG PO QAM for 90 Days, #90 08/27/18 Ergocalciferol (Vitamin D2) (VITAMIN D2) 50,000 Unit Capsule, 1 CAP PO Q7D for QMONDAY 08/27/18 Primary Care Provider Not On Staff Doctor LISA DALY MD Aug 29, 2018 18:12
== END 2018-08-29 19:17 | disposition home or self-care (01) ==
LOC: E/R 18:32 → TEL 19:56
PROVIDERS: ADMIT Family Medicine; ATTEND Internal Medicine
DX: N17.9 Acute kidney failure, unspecified (principal); D64.9 Anemia, unspecified; I25.10 Atherosclerotic heart disease of native coronary artery without angina pectoris; I10 Essential (primary) hypertension; E78.5 Hyperlipidemia, unspecified; J44.9 Chronic obstructive pulmonary disease, unspecified; I11.0 Hypertensive heart disease with heart failure; I50.32 Chronic diastolic (congestive) heart failure
CPT/HCPCS: 36415; 71045; 74176; 75574; 80048; 80053; 80061; 82550; 82553; 83036; 83735; 84443; 84484; 85025; 93005; 93306; 99285; G0378; J1644; J2270; Q9967